=== PATIENT | male | born 1960 | race Two or more races ===

== ENCOUNTER 2021-11-23 05:45 | Day surgery (SDC) | payer OTHER ==
[~2021-11-23 05:45] MED LIST: CRESTOR5 MG PO; TRILIPIX45 MG PO; ZETIA10 MG PO
[2021-11-23] MEDS ORDERED: ULTRAM50 MG PO (09:55)
[2021-11-23] MEDS ORDERED: TYLENOL ARTHRI650 MG PO (09:55)
[2021-11-23] MEDS ORDERED: MIRALAX17 GM PO (09:55)
[2021-11-23] MEDS ORDERED: KETO10TA2 PO (09:55)
== END 2021-11-23 11:25 | disposition home or self-care (01) ==
LOC: CIR.AMB 05:45
PROVIDERS: ATTEND Surgery
DX: K40.90 Unilateral inguinal hernia, without obstruction or gangrene, not specified as recurrent (principal); K42.9 Umbilical hernia without obstruction or gangrene; Z20.822 Contact with and (suspected) exposure to COVID-19; E78.5 Hyperlipidemia, unspecified
CPT/HCPCS: 49650; 49652; C1781